=== PATIENT | male | born 1990 | race Caucasian/White ===

== ENCOUNTER 2018-10-17 06:10 | Emergency (ER) | payer MEDICAID ==
[~2018-10-17] VITALS: Ht 185.4 cm; Wt 192.8 kg
[2018-10-17 06:51] VITALS: BP 129/65
== END 2018-10-17 07:23 | disposition home or self-care (01) ==
LOC: ER 06:10
DX: J03.90 Acute tonsillitis, unspecified (principal); I10 Essential (primary) hypertension; F17.210 Nicotine dependence, cigarettes, uncomplicated